=== PATIENT | male | born 1960 | race Caucasian/White ===

== ENCOUNTER 2020-07-25 09:24 | Observation (INO) ==
[2020-07-25 11:28] LABS: Hemoglobin 13.5 g/dL (12.9-16.9); Mean Corpuscular HGB Conc 33.8 g/dL (31.6-35.5); Mean Corpuscular Hemoglobin 31.8 pg (28.0-33.3); Mean Corpuscular Volume 94.1 fL (83.0-100.0); Mean Platelet Volume 11.9 fL (9.4-12.4); Platelet Count 178 K/mcL (140-400); Red Blood Count 4.25 M/mcL (4.19-5.50); Red Cell Distribution Width 13.5 % (11.5-14.5); White Blood Count 6.9 K/mcL (4.3-11.1)
[2020-07-25 11:36] LABS: INR 2.6; Prothrombin Time 29.6 Seconds (9.4-12.1)
[2020-07-25] MEDS ORDERED: Fluticasone Propionate Nasal 50 MCG/SPRAY BOTTLE NS PRN (11:45)
[2020-07-25] MEDS ORDERED: Furosemide 20 MG TABLET PO PRN (11:47)
[2020-07-25 11:58] LABS: Alanine Aminotransferase 16 Units/L (7-52); Albumin 4.1 g/dL (3.5-5.7); Albumin/Globulin Ratio 1.8 (1.1-2.2); Alkaline Phosphatase 77 Units/L (34-104); Aspartate Amino Transferase 21 Units/L (13-39); BUN/Creatinine Ratio 14 (6-26); Bilirubin,Total 0.7 mg/dL (0.3-1.0); Blood Urea Nitrogen 16 mg/dL (6-20); Calcium 8.8 mg/dL (8.6-10.3); Carbon Dioxide 27 mEq/L (23-29); Chloride 107 mEq/L (98-107); Globulin 2.3 g/dL (2.4-3.5); Glucose 108 mg/dL (70-105); Osmolality,Calculated 292 (280-300); Potassium 4.6 mEq/L (3.5-5.1); Sodium 140 mEq/L (136-145); Total Protein 6.4 g/dL (6.4-8.9); eGFR For African Americans > 60 (> 60); eGFR For Non-African Americans > 60 (> 60)
[2020-07-26 03:29] LABS: INR 1.9; Prothrombin Time 21.9 Seconds (9.4-12.1)
[2020-07-26] MEDS ORDERED: *HR* Heparin 5,000 UNIT/ML VIAL IVP PRN ×2 (07:42)
[2020-07-26] MEDS ORDERED: Heparin 25,000UNIT/250ML 1/2NS 25,000 UNIT/250 ML IV.SOLN IVC SCH (07:45)
[2020-07-26] MEDS ORDERED: Aspirin Enteric Coated 81 MG Tablet PO SCH (09:00)
[2020-07-26] MEDS ORDERED: lisinopriL 5 MG TABLET PO SCH (09:00)
[2020-07-26 10:22] LABS: Hemoglobin 13.8 g/dL (12.9-16.9); Mean Corpuscular HGB Conc 32.9 g/dL (31.6-35.5); Mean Corpuscular Hemoglobin 31.1 pg (28.0-33.3); Mean Corpuscular Volume 94.6 fL (83.0-100.0); Mean Platelet Volume 11.6 fL (9.4-12.4); Platelet Count 175 K/mcL (140-400); Red Blood Count 4.44 M/mcL (4.19-5.50); Red Cell Distribution Width 13.5 % (11.5-14.5); White Blood Count 7.7 K/mcL (4.3-11.1)
[2020-07-26 10:31] LABS: Heparin anti-factor XA UFH 0.14 IU/mL (0.30-0.70)
[2020-07-26 10:32] LABS: INR 1.8; Prothrombin Time 20.4 Seconds (9.4-12.1)
[2020-07-26] MEDS ORDERED: *HR* Midazolam HCl 2 MG/2 ML VIAL ONE (14:14)
[2020-07-26] MEDS ORDERED: *HR* FentaNYL (PF) 100 MCG/2 ML VIAL ONE (14:14)
[2020-07-26] MEDS ORDERED: ISOVUE-370 200 ML INFUS..BTL ONE (14:15)
[2020-07-26] MEDS ORDERED: Nitroglycerin 1,000 MCG/5 ML VIAL IV ONE (14:15)
[2020-07-26] MEDS ORDERED: *HR* Heparin 10,000 UNIT/10 ML VIAL ONE (14:15)
[2020-07-26] MEDS ORDERED: Heparin 1,000 UNITS/500 mL 500 ML ONE (14:15)
[2020-07-26] MEDS ORDERED: 0.9 % Sodium Chloride 2,000 ML ONE (14:15)
[2020-07-26] MEDS ORDERED: *HR* Warfarin 5 MG TABLET PO ONE (18:00)
[2020-07-26 18:31] VITALS: BP 129/85
== END 2020-07-26 18:17 | disposition home or self-care (01) ==
LOC: 2ANU
PROVIDERS: ADMIT Internal Medicine Cardiovascular Disease; ATTEND Internal Medicine Cardiovascular Disease